=== PATIENT | female | born 1940 | race Caucasian/White ===

== ENCOUNTER 2019-01-15 12:15 | Outpatient (CLI) | payer MEDICARE ==
--- NOTE | 2019-01-15 12:46 | RAD ---
XR Hip Lt 2-3 View History: Chronic hip pain Comparison: None. Findings: There is no acute fracture or malalignment. Moderate narrowing of the pubic symphysis. Small acetabular osteophyte formation. Low-grade enthesopathic change greater trochanter. Impression: Degenerative changes, mild. No acute osseous abnormality.
[2019-01-15 12:47] LABS: #Basophils 0.1 thou/uL (0.0-0.2); #Eosinphils 0.1 thou/uL (0.0-0.7); #Lymphocytes 1.4 thou/uL (1.20-3.40); #Monocytes 0.5 thou/uL (0.11-0.59); #Neutrophils 4.1 thou/uL (1.40-6.50); %Basophils 1.1 % (0.0-1.0); %Eosinophils 2.1 % (0.0-10.0); %Lymphocytes 22.7 % (21.0-51.0); %Monocytes 7.7 % (0.0-10.0); %Neutrophils 66.5 % (42.0-75.0); Hemoglobin 10.4 g/dL (12.0-16.0); Mean Corpuscular HGB CONC 31.6 g/dL (32.0-36.0); Mean Corpuscular Hemoglobin 31.8 pg (27.0-31.0); Mean Corpuscular Volume 100.4 fL (78.0-98.0); Mean Platelet Volume 7.9 fL (7.4-10.4); Platelet Count 182 thou/uL (130-400); RBC Distribution Width 12.2 % (11.5-14.5); Red Blood Cell (RBC) Count 3.26 mill/uL (4.20-5.40); White Blood Cell (WBC) Count 6.1 thou/uL (4.8-10.8)
[2019-01-15 13:09] LABS: Anion Gap 14 mmol/L (10-20); BUN (Urea Nitrogen) 23 mg/dL (9.8-20.1); Calc. Creatinine Clearance 0 mL/min (70-130); Calcium 10.2 mg/dL (7.8-10.44); Carbon Dioxide 25 mmol/L (23-31); Chloride 107 mmol/L (98-107); Estimated GFR-MDRD 50; Glucose 106 mg/dL (83-110); Potassium 4.5 mmol/L (3.5-5.1); Sodium 141 mmol/L (136-145)
== END 2019-01-15 12:16 | disposition home or self-care (01) ==
LOC: MADLABBHPM 12:15
PROVIDERS: ATTEND Family Medicine
DX: M25.552 Pain in left hip (principal); M16.12 Unilateral primary osteoarthritis, left hip
CPT/HCPCS: 36415; 80048; 85025

== ENCOUNTER 2020-08-03 14:10 | Outpatient (CLI) | payer MEDICARE | END 2020-08-03 14:11 | disposition home or self-care (01) | LOC: MADRAD 14:10 | PROVIDERS: ATTEND Family Medicine | DX: M25.561 Pain in right knee (principal) ==

== ENCOUNTER 2022-11-13 11:01 | Emergency (ER) | payer MEDICARE ==
[2022-11-13] MEDS ORDERED: Bacitracin 1 PK ONE (13:08)
== END 2022-11-13 13:15 | disposition home or self-care (01) ==
LOC: MADERS 11:01
DX: L03.313 Cellulitis of chest wall (principal)
CPT/HCPCS: 10060

== ENCOUNTER 2022-11-17 08:56 | Outpatient (CLI) | payer MEDICARE ==
[2022-11-17] MEDS ORDERED: Iopamidol 370 76% 100 ML VIAL ONE (13:42)
== END 2022-11-17 08:57 | disposition home or self-care (01) ==
LOC: MADCT 08:56
PROVIDERS: ATTEND Plastic Surgery
DX: L02.213 Cutaneous abscess of chest wall (principal)
CPT/HCPCS: 36415; 71260; 82565; Q9967

== ENCOUNTER 2023-04-08 08:47 | Emergency (ER) | payer MEDICARE ==
[2023-04-08] MEDS ORDERED: Famotidine 20 MG TAB ONE (09:23)
[2023-04-08] MEDS ORDERED: Ondansetron ODT 4 MG TAB ONE (09:24)
== END 2023-04-08 09:42 | disposition home or self-care (01) ==
LOC: MADERS 08:47
DX: U07.1 COVID-19 (principal); J02.0 Streptococcal pharyngitis; E78.00 Pure hypercholesterolemia, unspecified; I11.0 Hypertensive heart disease with heart failure; I50.9 Heart failure, unspecified; Z79.899 Other long term (current) drug therapy
CPT/HCPCS: 99284; Q0162